=== PATIENT | male | born 1935 | race Hispanic/Latino ===

== ENCOUNTER 2018-04-29 14:07 | Outpatient (CLI) | payer MEDICARE ==
[2018-04-29 14:50] LABS: Hemoglobin 12.8 gm/dl (11.8-15.2); Mean Corpuscular HGB Conc 33 % (32-34); Mean Corpuscular Hemoglobin 31 pg (28-32); Mean Corpuscular Volume 95 fl (84-94); Platelet Count 144 K/mm3 (140-440); Red Blood Count 4.09 M/mm3 (3.65-5.03); Red Cell Distribution Width 16.1 % (13.2-15.2)
[2018-04-29 15:15] LABS: Alanine Aminotransferase 17 units/L (7-56); Albumin 3.9 g/dL (3.9-5); BUN/Creatinine Ratio 16; Blood Urea Nitrogen 18 mg/dL (9-20); Calcium 8.4 mg/dL (8.4-10.2); Hemolysis Index 3
[2018-04-29 15:20] LABS: Free T4 (Free Thyroxine) 1.1 ng/dL (0.76-1.46)
== END 2018-04-29 14:08 | disposition home or self-care (01) ==
LOC: LAB 14:07
PROVIDERS: ATTEND Specialist
DX: G31.84 Mild cognitive impairment of uncertain or unknown etiology (principal)
CPT/HCPCS: 36415; 80053; 82607; 82747; 84439; 84443; 85027

== ENCOUNTER 2018-05-01 10:59 | Outpatient (CLI) | payer MEDICARE | END 2018-05-01 11:00 | disposition home or self-care (01) | LOC: MRI 10:59 | PROVIDERS: ATTEND Specialist | DX: R41.1 Anterograde amnesia (principal) | CPT/HCPCS: 70551 ==